=== PATIENT | female | born 1950 | race Caucasian/White ===

== ENCOUNTER 2017-06-09 07:58 | Emergency (ER) | payer MEDICARE ==
[2017-06-09 08:46] LABS: ABSOLUTE LYMPHOCYTES (AUTO) 0.9 10^3/uL (0.5-4.7); ABSOLUTE MONOCYTES (AUTO) 0.3 10^3/uL (0.1-1.4); BASOPHILS % (AUTO) 0.1 % (0-2); EOSINOPHILS % (AUTO) 0.3 % (0-6); HEMATOCRIT 40.2 % (36.0-47.0); HEMOGLOBIN 13.7 g/dL (12.0-15.5); HGB HCT DIFFERENCE 0.9; LYMPHOCYTES % (AUTO) 8.5 % (13-45); MEAN CORPUSCULAR HEMOGLOBIN 29.8 pg (27.0-33.4); MEAN CORPUSCULAR VOLUME 88 fl (80-97); MONOCYTES % (AUTO) 2.7 % (3-13); RED BLOOD COUNT 4.59 10^6/uL (3.72-5.28); RED CELL DISTRIBUTION WIDTH 13.2 % (11.5-14.0); SEGMENTED NEUTROPHILS % (AUTO) 88.4 % (42-78); WHITE BLOOD COUNT 10.2 10^3/uL (4.0-10.5)
[2017-06-09 08:52] LABS: AMORPHOUS SEDIMENT,URINE 1+ /HPF; APPEARANCE,URINE TURBID; BILIRUBIN,URINE NEGATIVE (NEGATIVE); GLUCOSE, URINE NEGATIVE (NEGATIVE); KETONES,URINE NEGATIVE (NEGATIVE); LEUKOCYTE ESTERASE,URINE NEGATIVE (NEGATIVE); NITRITE,URINE NEGATIVE (NEGATIVE); PROTEIN,URINE NEGATIVE (NEGATIVE); URINE SPECIFIC GRAVITY 1.016
[2017-06-09] MEDS ORDERED: ONDANSETRON HCL INJ/PF 4 MG/2 ML SDV IV ONE (08:54)
[2017-06-09] MEDS ORDERED: KETOROLAC TROMETHAMINE INJ/PF 30 MG/1 ML SDV IV ONE (08:54)
[2017-06-09 08:57] LABS: ALANINE AMINOTRANSFERASE 199 U/L (9-52); ALBUMIN 4.5 g/dL (3.5-5.0); ALKALINE PHOSPHATASE 141 U/L (38-126); ANION GAP 10 (5-19); ASPARTATE AMINO TRANSFERASE 397 U/L (14-36); BILIRUBIN,TOTAL 1.5 mg/dL (0.2-1.3); BLOOD UREA NITROGEN 24 mg/dL (7-20); CALCIUM 10.8 mg/dL (8.4-10.2); CARBON DIOXIDE 29 mmol/L (22-30); CHLORIDE 102 mmol/L (98-107); CREATININE RESULT 0.72 mg/dL (0.52-1.25); GLUCOSE 160 mg/dL (75-110); LIPASE 43.7 U/L (23-300); POTASSIUM 4.7 mmol/L (3.6-5.0); SODIUM 140.6 mmol/L (137-145); TOTAL PROTEIN 7.3 g/dL (6.3-8.2)
--- NOTE | 2017-06-09 09:54 | RADIOLOGY REPORT (SQ) ---
EXAM DESCRIPTION: U/S ABDOMEN LIMITED W/O DOP COMPLETED DATE/TIME: 06/09/2017 9:45 am REASON FOR STUDY: abd pain COMPARISON: None. TECHNIQUE: Dynamic and static grayscale images acquired of the abdomen and recorded on PACS. Additio nal selected color Doppler and spectral images recorded. LIMITATIONS: None. FINDINGS: PANCREAS: No masses. No peripancreatic edema or fluid collections. LIVER: Echotexture is coarse with increased echogenicity consistent with fatty infiltration. LIVER VASCULATURE: Normal directional flow of the main portal vein and hepatic veins. GALLBLADDER: Gallstones and sludge. No pericholecystic fluid. No wall thickening. ULTRASOUND-DETECTED OSEI'S SIGN: Unable to assess, patient medicated. INTRAHEPATIC DUCTS AND COMMON DUCT: CBD and intrahepatic ducts normal caliber. No filling defects. INFERIOR VENA CAVA: Normal flow. AORTA: No aneurysm. RIGHT KIDNEY: Normal size. Normal echogenicity. No solid or suspicious masses. No hydronephrosis. No calcifications. PERITONEAL AND RIGHT PLEURAL SPACE: No ascites or effusions. OTHER: No other significant finding. IMPRESSION: 1. GALLSTONES AND SLUDGE. NO GALLBLADDER WALL THICKENING. NO BILIARY DILATION. 2. FATTY INFILTRATION OF THE LIVER. TECHNICAL DOCUMENTATION: JOB ID: [id number] [employer]- All Rights Reserved
--- NOTE | 2017-06-09 10:29 | ER Document Report ---
ED General - General Chief Complaint: Abdominal Pain >50 Stated Complaint: VOMITING Time Seen by Provider: 06/09/17 08:27 Mode of Arrival: Ambulatory Information source: Patient Notes: Patient presents emergency department with complaints of sudden onset abdominal pain and vomiting. Patient reports she woke up approximately 0230 this a.m. had a soft bowel movement and started vomiting. She denies trauma. Denies past medical history of chronic abdominal illnesses. She reports yesterday she went to [employer] ate a greasy hot dog and hamburger. No other family members are sick. Denies fever. Reports epigastric abdominal pain. Denies pain with void. TRAVEL OUTSIDE OF THE [place] IN LAST 30 DAYS: No - HPI Onset: This morning Onset/Duration: Sudden Quality of pain: Achy Severity: Severe Pain Level: 5 Associated symptoms: Vomiting Exacerbated by: Denies Relieved by: Denies Similar symptoms previously: No Recently seen / treated by doctor: No - Related Data Allergies/Adverse Reactions: No Known Allergies Allergy (Verified 06/09/17 08:46) Home Medications: Current Home Medications Bupropion HCl [Wellbutrin Xl 300mg 24hr Tablet] 1 tab PO DAILY 06/09/17 [History ] Escitalopram Oxalate 10 mg PO DAILY 06/09/17 [History] Metformin HCl [Metformin HCl ER] 500 mg PO DAILY 06/09/17 [History] Past Medical History - General Information source: Patient Last Menstrual Period: menopause - Social History Smoking Status: Never Smoker Chew tobacco use (# tins/day): No Frequency of alcohol use: None Drug Abuse: None Lives with: Family Family History: None Patient has suicidal ideation: No Patient has homicidal ideation: No - Past Medical History Cardiac Medical History: Reports: Hx Hypertension Endocrine Medical History: Reports: Hx Diabetes Mellitus Type 2 Renal/ Medical History: Denies: Hx Peritoneal Dialysis Psychiatric Medical History: Reports: Hx Bipolar Disorder Past Surgical History: Reports: Hx Appendectomy, Hx Section - 3 - Immunizations Hx Diphtheria, Pertussis, Tetanus Vaccination: Yes Review of Systems - Review of Systems Notes: Review HPI for review of systems., All other systems negative Physical Exam - Vital signs Vitals: Temp Pulse Resp BP Pulse Ox 98.1 F 70 16 141/80 H 97 06/09/17 08:02 06/09/17 08:02 06/09/17 08:02 06/09/17 08:02 06/09/17 08:02 - Notes Notes: PHYSICAL EXAMINATION: GENERAL: Well-appearing and in no acute distress HEAD: Atraumatic, normocephalic. EYES: Pupils equal round and reactive to light, extraocular movements intact, sclera anicteric, conjunctiva are normal. ENT: nares patent, oropharynx clear without exudates. Moist mucous membranes. NECK: Normal range of motion, supple without lymphadenopathy LUNGS: CTAB and equal. No wheezes rales or rhonchi. HEART: Regular rate and rhythm without murmurs ABDOMEN: Soft, slight epigastric tenderness with palpation. No guarding, no rebound BACK: Denies pain EXTREMITIES: Normal range of motion, no pitting edema. No cyanosis. NEUROLOGICAL: Cranial nerves grossly intact. Normal sensory/motor exams. PSYCH: Normal mood, normal affect. SKIN: Warm, Dry, normal turgor, no rashes or lesions noted Course - Re-evaluation Re-evalutation: 06/09/17 10:26 Reports she feels much better since the Toradol and Zofran. No further vomiting. No vomiting since arrival. Patient updated on labs, updated on elevated liver enzymes. Lipase 43.7. Denies history of alcohol intake, denies hx of hepatitis. 06/09/17 10:41 patient updated on gallstones, sludge, lowfat diet, importance of fu with surgeon, she verbalized understanding to all instructions. No further vomiting patient reports pain is gone. - Vital Signs Vital signs: Temp Pulse Resp BP Pulse Ox 98.1 F 70 18 141/80 H 97 06/09/17 08:02 06/09/17 08:02 06/09/17 08:40 06/09/17 08:02 06/09/17 08:02 - Laboratory Result Diagrams: 06/09/17 08:23 06/09/17 08:23 Laboratory results interpreted by me: 06/09/17 06/09/17 06/09/17 08:23 08:23 08:23 Seg Neutrophils % 88.4 H Lymphocytes % 8.5 L Monocytes % 2.7 L Absolute Neutrophils 9.0 H BUN 24 H Glucose 160 H Calcium 10.8 H Total Bilirubin 1.5 H Direct Bilirubin 1.0 H AST 397 H ALT 199 H Alkaline Phosphatase 141 H Urine Urobilinogen 2.0 H Urine Ascorbic Acid 40 H - Diagnostic Test Radiology reviewed: Image reviewed, Reports reviewed - gall stones and sludge noted Discharge - Discharge Clinical Impression: Elevated liver enzymes, Gallbladder disease Abdominal pain Qualifiers: Abdominal location: epigastric Qualified Code(s): R10.13 - Epigastric pain Vomiting Qualifiers: Vomiting type: unspecified Vomiting Intractability: non-intractable Nausea presence: unspecified Qualified Code(s): R11.10 - Vomiting, unspecified Condition: Stable Disposition: HOME, SELF-CARE Instructions: Abdominal Pain ([facility]), Antinausea Medication ([facility]), Gallbladder Disease ([facility]), Liver Function Abnormality ([facility]), Low-Fat Diet ([facility]), Surgeon, Toradol Injection ([facility]), Vomiting ([facility]) Additional Instructions: *You have been evaluated for abdominal pain, vomiting, elevated liver enzymes, gallbladder disease *Your gallbladder ultrasound gallstones and sludge *Take medication as prescribed for nausea *Low fat diet, avoid greasy, fatty foods *Follow up with your primary care provider within Sunday for recheck for referral to surgeon *Return to ED for worsening condition, changes, needs *Return to ED if not better in 24 hours Prescriptions: Ondansetron [Zofran Odt 4 mg Tablet] 1 - 2 tab PO Q4H #10 tab.beth
[2017-06-09 11:04] VITALS: BP 144/72
== END 2017-06-09 11:03 | disposition home or self-care (01) ==
LOC: ER 07:58
DX: R74.8 Abnormal levels of other serum enzymes (principal); K82.9 Disease of gallbladder, unspecified; R11.10 Vomiting, unspecified; R10.13 Epigastric pain; I10 Essential (primary) hypertension; E11.9 Type 2 diabetes mellitus without complications; Z79.4 Long term (current) use of insulin
CPT/HCPCS: 99284; 96374; 96375; 36415; 83690; 85025; 80053; 81001; 76705; J1885; J2405

== ENCOUNTER → 2017-06-18 | Outpatient (CLI) | payer MEDICARE ==
--- NOTE | 2017-06-18 21:01 | EKG REPORT ---
SEVERITY:- NORMAL ECG - SINUS RHYTHM : Confirmed by: Sravanthi Mcqueen MD 18-Jun-2017 21:01:08
== END ==
LOC: OD 10:51
PROVIDERS: ATTEND Surgery
DX: Z01.810 Encounter for preprocedural cardiovascular examination (principal); Z01.811 Encounter for preprocedural respiratory examination; Z01.812 Encounter for preprocedural laboratory examination; Z01.818 Encounter for other preprocedural examination; K80.20 Calculus of gallbladder without cholecystitis without obstruction; R11.0 Nausea
CPT/HCPCS: 93005; 93010